=== PATIENT | female | born 1935 | race Caucasian/White ===

== ENCOUNTER 2021-01-04 09:58 | Day surgery (SDC) | payer MEDICARE, BC ==
[2020-12-29 10:53] LABS: BASOPHILS % (AUTO) 0.6 % (0-1); EOSINOPHILS # (AUTO) 0.1 X10'3 (0-0.9); EOSINOPHILS % (AUTO) 2.9 % (0-6); HEMATOCRIT 43.6 % (35.0-45.0); HEMOGLOBIN 14.5 g/dl (12.0-16.0); LYMPHOCYTES # (AUTO) 1.4 X10'3 (1.1-4.8); LYMPHOCYTES % (AUTO) 31.2 % (21-51); MEAN CORPUSCULAR HGB CONC 33.2 g/dL (33.0-36.5); MEAN CORPUSCULAR VOLUME 90.2 FL (78-98); MEAN PLATELET VOLUME 8.3 FL (7.4-10.4); MONOCYTES # (AUTO) 0.5 X10'3 (0-0.9); MONOCYTES % (AUTO) 12.2 % (2-12); NEUTROPHILS # (AUTO) 2.4 X10'3 (1.8-7.7); NEUTROPHILS % (AUTO) 53.1 % (42-75); PLATELET COUNT 283 X10'3 (140-440); RED BLOOD COUNT 4.84 X10'6 (4.20-5.60); RED CELL DISTRIBUTION WIDTH 14.4 % (11.5-14.5); WHITE BLOOD COUNT 4.5 X10'3 (4.5-11.0)
[2020-12-29 11:04] LABS: PARTIAL THROMBOPLASTIN TIME 26 SECONDS (22-32)
[2020-12-29 11:05] LABS: ALANINE AMINOTRANSFERASE 31 U/L (12-78); ALBUMIN 3.7 G/DL (3.4-5.0); ALBUMIN/GLOBULIN RATIO 1.2 (1.1-1.5); ALKALINE PHOSPHATASE 53 IU/L (46-116); ANION GAP 7 (8-16); ASPARTATE AMINO TRANSFERASE 20 U/L (10-37); BILIRUBIN,TOTAL 0.5 MG/DL (0.1-1.0); BLOOD UREA NITROGEN 20 MG/DL (7-18); CALCIUM 8.6 MG/DL (8.5-10.1); CHLORIDE 107 MMOL/L (99-107); CREATININE 0.74 MG/DL (0.40-0.90); GLUCOSE 99 MG/DL (70-104); POTASSIUM 4.3 MMOL/L (3.5-5.1); SODIUM 142 MMOL/L (135-145); TOTAL CARBON DIOXIDE 27.9 MMOL/L (24-32); TOTAL PROTEIN 6.8 G/DL (6.4-8.2); eGFR 74 ML/MIN
[~2021-01-04] VITALS: Ht 152.4 cm; Wt 75.0 kg
[2021-01-04] VITALS (12 sets, daily range): BP systolic 91–136; BP diastolic 42–80
[~2021-01-04 09:58] MED LIST: ALEN70TA60 PO; ASPI-1265 PO; ASTNS; ATOR10TA87 PO; CALC-472 PO; CARB1DRO12 OP; CHOL2000 PO; DOCU50CA6 PO; DOXY-243 PO; HYDR-4353 PO; LISI20TA28 PO; MULT-785 PO; PROP15DR2 EACHEYE; SYN0.088T PO; [UNRECOGNIZED DRUG - CODE] OP
[2021-01-04] MEDS ORDERED: LEVO50TA8 PO (10:49)
[2021-01-04] MEDS ORDERED: METO25TA6 PO (10:49)
[2021-01-04] MEDS ORDERED: ALPR0.255 PO (10:49)
[2021-01-04] MEDS ORDERED: PEPTO-BISMOL (10:52)
[2021-01-04] MEDS ORDERED: OMEGA 3 (10:52)
[2021-01-04] MEDS ORDERED: ALLER-TEC (10:52)
[2021-01-04] MEDS ORDERED: LORazepam 0.5 MG tablet PO PRN (12:00)
[2021-01-04] MEDS ORDERED: diphenhydrAMINE 25mg capsule PO PRN (12:00)
[2021-01-04] MEDS ORDERED: normal saline 1,000 ML IV SCH (12:00)
[2021-01-04] MEDS ORDERED: nitroGLYCERIN 0.4mg SUBLingual tab SL PRN (12:00)
[2021-01-04] MEDS ORDERED: midazolam 1 mg/ML 2ml injection ONE (12:37)
[2021-01-04] MEDS ORDERED: iohexol 350 MG/ML 50ML vial IV ONE (12:37)
[2021-01-04] MEDS ORDERED: LIDOcaine 1% (10mg/ml)w/preservative injection 20ml MDV ONE (12:37)
[2021-01-04] MEDS ORDERED: fentaNYL/PF 50MCG/1 ML 2ML syringe ONE (12:37)
[2021-01-04] MEDS ORDERED: iohexol 350MG/ML 100ml bottle IV ONE (12:37)
[2021-01-04] MEDS ORDERED: HYDROcodone/acetaminophen 5mg/325mg tablet PO PRN (13:50)
[2021-01-04] MEDS ORDERED: OXAZEpam 15mg capsule PO PRN (13:50)
[2021-01-04] MEDS ORDERED: HYDROcodone/acetaminophen 10/325mg tab PO PRN (13:50)
[2021-01-04] MEDS ORDERED: proCHLORperazine 10 MG/2 ml inj IV PRN (13:50)
[2021-01-04] MEDS ORDERED: ondansetron/PF 4mg/2ml inj IV PRN (13:50)
== END 2021-01-04 20:05 | disposition home or self-care (01) ==
LOC: SSTAY O 09:58
PROVIDERS: ATTEND Internal Medicine Cardiovascular Disease
DX: R94.39 Abnormal result of other cardiovascular function study (principal); I25.10 Atherosclerotic heart disease of native coronary artery without angina pectoris; I35.0 Nonrheumatic aortic (valve) stenosis; E78.5 Hyperlipidemia, unspecified; I45.10 Unspecified right bundle-branch block; I10 Essential (primary) hypertension; I45.2 Bifascicular block; E03.9 Hypothyroidism, unspecified; M19.90 Unspecified osteoarthritis, unspecified site; J44.9 Chronic obstructive pulmonary disease, unspecified; Z96.652 Presence of left artificial knee joint; Z98.890 Other specified postprocedural states; Z88.0 Allergy status to penicillin; Z79.01 Long term (current) use of anticoagulants; Z79.899 Other long term (current) drug therapy; Z87.891 Personal history of nicotine dependence
CPT/HCPCS: 36415; 71046; 80053; 85025; 85610; 85730; 93005; 93458; 93567; 99152; C1760; C1769; J1644; J2001; J2250; J3010; J7030; Q0163; Q9967; 99153; A4620; A6258

== ENCOUNTER 2021-02-24 08:54 | Day surgery (SDC) | payer MEDICARE, BC ==
[2021-02-22 16:21] LABS: BASOPHILS % (AUTO) 0.5 % (0-1); EOSINOPHILS # (AUTO) 0.1 X10'3 (0-0.9); EOSINOPHILS % (AUTO) 2.1 % (0-6); LYMPHOCYTES # (AUTO) 1.7 X10'3 (1.1-4.8); MEAN CORPUSCULAR HEMOGLOBIN 30.3 PG (27.0-31.0); MEAN CORPUSCULAR HGB CONC 33.6 g/dL (33.0-36.5); MONOCYTES # (AUTO) 0.8 X10'3 (0-0.9); MONOCYTES % (AUTO) 12.5 % (2-12); NEUTROPHILS # (AUTO) 3.5 X10'3 (1.8-7.7); NEUTROPHILS % (AUTO) 57.9 % (42-75); PRE OP HEMATOCRIT 44.3 % (35.0-45.0); PRE OP HEMOGLOBIN 14.9 g/dL (12.0-16.0); PRE OP PLATELET COUNT 337 X10'3 (140-440); RED BLOOD COUNT 4.92 X10'6 (4.20-5.60); RED CELL DISTRIBUTION WIDTH 13.7 % (11.5-14.5)
[2021-02-22 16:29] LABS: ALBUMIN 3.9 G/DL (3.4-5.0); ALBUMIN/GLOBULIN RATIO 1.1 (1.1-1.5); ALKALINE PHOSPHATASE 64 IU/L (46-116); BLOOD UREA NITROGEN 22 MG/DL (7-18); BUN/CREATININE RATIO 29.7 (6.6-38.0); CALCIUM 9.3 MG/DL (8.5-10.1); CHLORIDE 105 MMOL/L (99-107); CREATININE 0.74 MG/DL (0.40-0.90); PRE OP ALT 33 U/L (30-65); PRE OP ANION GAP 10 (8-16); PRE OP AST 23 U/L (10-37); PRE OP BILIRUB, TOTAL 0.6 MG/DL (0.0-1.0); PRE OP GLUCOSE 86 MG/DL (70-104); PRE OP POTASSIUM 4.2 MMOL/L (3.4-5.1); PRE OP SODIUM 142 MMOL/L (135-145); TOTAL CARBON DIOXIDE 26.8 MMOL/L (24-32); TOTAL PROTEIN 7.3 G/DL (6.4-8.2); eGFR 74 ML/MIN
[~2021-02-24] VITALS: Ht 152.4 cm; Wt 71.6 kg
[2021-02-24] VITALS (18 sets, daily range): BP systolic 85–146; BP diastolic 41–80
[~2021-02-24 08:54] MED LIST changes: +ALPR0.255 PO; -ASTNS; -CALC-472 PO; +CALC1TAB PO; +CARB15DR58 EACHEYE; -CARB1DRO12 OP; +CETI-194 PO; -DOCU50CA6 PO; +DOCUMENT DATE & TIME OF BETA-BLOCKER PO ONE; -DOXY-243 PO; -HYDR-4353 PO; +LEVO50TA8 PO; +LISI10TA27 PO; -LISI20TA28 PO; +METO25TA6 PO; +OM-31CAP2 PO; -PROP15DR2 EACHEYE; -SYN0.088T PO; -[UNRECOGNIZED DRUG - CODE] OP; +acetaminophen 325mg tablet PO ONE; +cefazolin/dext.iso 2gm/100ml IV ONE; +celeCOXIB 100mg capsule PO ONE; +famotidine 20mg tablet PO ONE; +gabapentin 300mg capsule PO ONE; +metoclopramide 5 mg/ml inj IV ONE; +ringers solution, lacted 1,000 ML IV SCH; +tranexamic acid 1gm/0.7% sal. 100 ML IV ONE; +vancomycin 1,500 MG in NS 300ml IV soln IV ONE
[2021-02-24] MEDS ORDERED: ROPIVAcaine inj 250 MG, ketorolac tromethamine inj. 30 MG, CloNIDine/PF inj 80 MCG, epi... IU ONE ×5 (10:30)
[2021-02-24] MEDS ORDERED: vancomycin 1,000mg inj ONE (11:00)
[2021-02-24] MEDS ORDERED: ondansetron/PF 4mg/2ml inj ONE (11:06)
[2021-02-24] MEDS ORDERED: dexamethasone sod phosphate 10mg/ml inj ONE (11:06)
[2021-02-24] MEDS ORDERED: sevoflurane 250ml liquid IH ONE (11:06)
[2021-02-24] MEDS ORDERED: rocuronium 10mg/ml inj IV ONE (11:06)
[2021-02-24] MEDS ORDERED: neostigmine methylsulfate 1 MG/ML 10ml vial ONE (11:06)
[2021-02-24] MEDS ORDERED: propofol 10mg/ml 20ml vial IV ONE (11:06)
[2021-02-24] MEDS ORDERED: LIDOcaine 1%/PF 5ML 10 MG/ML VIAL ONE (11:06)
[2021-02-24] MEDS ORDERED: glycopyrrolate 0.2mg/ml inj ONE (11:06)
[2021-02-24] MEDS ORDERED: fentaNYL/PF 50MCG/1 ML 2ML syringe ONE ×2 (11:14→11:41)
[2021-02-24] MEDS ORDERED: ROPIVAcaine 0.2% (10 MG/5 ML) BOLUS INJECTION ADDCANAL PRN (11:50)
[2021-02-24] MEDS ORDERED: morphine 2 MG/ML inj. syringe IV PRN (11:50)
[2021-02-24] MEDS ORDERED: HYDROmorphone/PF 0.2 MG/ML SYRINGE IV PRN ×2 (11:50)
[2021-02-24] MEDS ORDERED: ringers solution, lacted 1,000 ML IV SCH (11:50)
[2021-02-24] MEDS ORDERED: ondansetron/PF 4mg/2ml inj IV PRN ×2 (11:50→12:55)
--- NOTE | 2021-02-24 12:51 | NUR ---
Patient arrived via hospital bed. 20g left wrist. Right Total Knee with CDI dressing, shirin, sleeve and sand. Patient asleep on 10L o2 mask. SB. Will continue to monitor.
[2021-02-24] MEDS ORDERED: bisacodyl 10mg suppository rectal RC PRN (12:55)
[2021-02-24] MEDS ORDERED: acetaminophen 325mg tablet PO PRN (12:55)
[2021-02-24] MEDS ORDERED: HYDROcodone/acetaminophen 10/325mg tab PO PRN (12:55)
[2021-02-24] MEDS ORDERED: non-formulary drug (Alendronate Sodium* (Fosamax*) 1 TAB) PO SCH (12:55)
[2021-02-24] MEDS ORDERED: HYDROmorphone 1 mg/ml syringe IV PRN (12:55)
[2021-02-24] MEDS ORDERED: diphenhydrAMINE 25mg capsule PO PRN ×2 (12:55)
[2021-02-24] MEDS ORDERED: ALPRAZolam 0.25mg tablet PO PRN (12:55)
[2021-02-24] MEDS ORDERED: cetirizine 10mg tablet PO PRN (12:55)
[2021-02-24] MEDS ORDERED: PEG 400/HYPROMELLOSE/GLYCERIN 15ml bottle EACHEYE PRN (12:55)
[2021-02-24] MEDS ORDERED: HYDROmorphone inj. 0.5 MG/0.5 ML DISP.SYRIN IV PRN (12:55)
[2021-02-24] MEDS ORDERED: magnesium hydroxide 30ml (MOM) UD suspension PO PRN (12:55)
[2021-02-24] MEDS: ROPIVAcaine 0.2%/PF PUMP/bolus 545 ML ADDCANAL SCH (13:14)
--- NOTE | 2021-02-24 13:54 | NUR ---
Patient in room PAS IN 900. I have received report from Ami WHEELER in recovery and had the opportunity to ask questions and assume patient care.
--- NOTE | 2021-02-24 14:01 | NUR ---
Report called to Faustina. Patient continues to be Sinus Jason with normal BP. patient is denying pain now that OnQ attached, patient needs continuing education regarding pushing button. VSS. LR running at 100ml/hr. Belongings sent with patient. Patient is slow to be educated but re-orients easily. RESIGHINI. No further report needed.
[2021-02-24] MEDS: potassium cl 20mEq in 1/2 NS 1,000 ML IV SCH ×2 (15:45→20:55)
[2021-02-24] MEDS: gabapentin 300mg capsule PO SCH ×2 (15:48→19:32)
[2021-02-24] MEDS: ceFAZolin/D5W- 1GM premix 50 ML IV SCH (16:03)
[2021-02-24] MEDS ORDERED: tranexamic acid 1gm/0.7% sal. 100 ML IV ONE (17:55)
--- NOTE | 2021-02-24 18:07 | NUR ---
Problems reprioritized. Patient report given, questions answered & plan of care reviewed with Kristi WHEELER.
[2021-02-24] MEDS: ascorbic acid 500mg tablet PO SCH (19:32)
[2021-02-24] MEDS: metoprolol tartrate 12.5mg (1/2 tablet) PO SCH (19:34)
[2021-02-24] MEDS ORDERED: vancomycin/NS 1 GM ADD-VANTAGE 250 ML IV SCH (20:00)
[2021-02-24] MEDS ORDERED: atorvastatin 10mg tablet PO SCH (21:00)
[2021-02-24] MEDS ORDERED: sennosides 8.6mg tablet PO SCH (21:00)
[2021-02-25] VITALS: BP 110/56
[2021-02-25] MEDS: ceFAZolin/D5W- 1GM premix 50 ML IV SCH (00:11)
--- NOTE | 2021-02-25 00:16 | NUR ---
dayshift did not chart post op VS. They were written down, so night PCT entered them.
--- NOTE | 2021-02-25 02:24 | NUR ---
reviewed and edited SRN assessment.
[2021-02-25] MEDS: potassium cl 20mEq in 1/2 NS 1,000 ML IV SCH (02:25)
[2021-02-25] MEDS: HYDROcodone/acetaminophen 10/325mg tab PO PRN ×2 (04:45→09:07)
[2021-02-25] MEDS: ROPIVAcaine 0.2%/PF PUMP/bolus 545 ML ADDCANAL SCH (05:34)
[2021-02-25 06:11] LABS: BASOPHILS % (AUTO) 0 % (0-1); EOSINOPHILS % (AUTO) 0.4 % (0-6); HEMATOCRIT 32.9 % (35.0-45.0); HEMOGLOBIN 11.3 g/dl (12.0-16.0); LYMPHOCYTES # (AUTO) 1.2 X10'3 (1.1-4.8); LYMPHOCYTES % (AUTO) 12.3 % (21-51); MEAN CORPUSCULAR HEMOGLOBIN 30.7 PG (27.0-31.0); MEAN CORPUSCULAR HGB CONC 34.3 g/dL (33.0-36.5); MEAN CORPUSCULAR VOLUME 89.5 FL (78-98); MONOCYTES # (AUTO) 1.4 X10'3 (0-0.9); MONOCYTES % (AUTO) 14.1 % (2-12); NEUTROPHILS # (AUTO) 7.2 X10'3 (1.8-7.7); NEUTROPHILS % (AUTO) 73.2 % (42-75); PLATELET COUNT 283 X10'3 (140-440); RED BLOOD COUNT 3.68 X10'6 (4.20-5.60); RED CELL DISTRIBUTION WIDTH 13.9 % (11.5-14.5); WHITE BLOOD COUNT 9.9 X10'3 (4.5-11.0)
--- NOTE | 2021-02-25 06:19 | NUR ---
Problems reprioritized. Patient report given, questions answered & plan of care reviewed with LIAM Dwyer.
[2021-02-25 06:29] LABS: ANION GAP 9 (8-16); CHLORIDE 109 MMOL/L (99-107); POTASSIUM 4.6 MMOL/L (3.5-5.1); SODIUM 142 MMOL/L (135-145); TOTAL CARBON DIOXIDE 23.6 MMOL/L (24-32)
--- NOTE | 2021-02-25 06:35 | NUR ---
Patient in room JOHN 345. I have received report from Kristi cornelius and had the opportunity to ask questions and assume patient care.
[2021-02-25 08:00] VITALS: BP 126/54
[2021-02-25] MEDS ORDERED: levoTHYROXINE 25mcg tablet PO SCH (08:00)
[2021-02-25] MEDS ORDERED: aspirin 81mg tab.chew PO SCH (08:00)
[2021-02-25] MEDS ORDERED: multivitamins, therapeutics tablet PO SCH (08:00)
[2021-02-25] MEDS ORDERED: lisinopril 10 MG tablet PO SCH (08:00)
[2021-02-25] MEDS: gabapentin 300mg capsule PO SCH (08:44)
[2021-02-25] MEDS: metoprolol tartrate 12.5mg (1/2 tablet) PO SCH (08:45)
[2021-02-25 08:46] VITALS: BP_SYST 126
[2021-02-25] MEDS: ascorbic acid 500mg tablet PO SCH (08:48)
--- NOTE | 2021-02-25 11:25 | NUR ---
pt discharged at 1045 in stable condition. Iv removed tip intact, no complications. Pt educated on post op instructions. Belongings sent with patient. Patient discharged with son in private vehicle.
[2021-02-25] MEDS ORDERED: celeCOXIB 100mg capsule PO SCH (20:00)
== END 2021-02-25 11:20 | disposition home or self-care (01) ==
LOC: PAS IN 08:54 → UNDOADMIN 08:54 → PRE-OP 08:54 → EDSTATUS 11:30 → UNDOADMIN 12:56 → PAS IN 12:56 → SUR 3N 14:21 → PAS IN 14:21 → SUR 3N 14:22 → PRE-OP 02-25 11:20 → UNDODISIN 02-25 11:20
PROVIDERS: ATTEND Orthopaedic Surgery
DX: M17.11 Unilateral primary osteoarthritis, right knee (principal); M19.072 Primary osteoarthritis, left ankle and foot; M19.071 Primary osteoarthritis, right ankle and foot; M16.11 Unilateral primary osteoarthritis, right hip; G89.18 Other acute postprocedural pain; I10 Essential (primary) hypertension; M85.80 Other specified disorders of bone density and structure, unspecified site; E66.9 Obesity, unspecified; Z68.30 Body mass index [BMI] 30.0-30.9, adult; Z85.828 Personal history of other malignant neoplasm of skin; Z20.822 Contact with and (suspected) exposure to COVID-19; Z79.899 Other long term (current) drug therapy; Z88.0 Allergy status to penicillin; Z98.890 Other specified postprocedural states; Z72.89 Other problems related to lifestyle; Z79.82 Long term (current) use of aspirin; Z98.49 Cataract extraction status, unspecified eye
CPT/HCPCS: 27447; 36415; 64448; 73560; 76937; 80051; 80053; 82948; 85025; 86885; 86900; 86901; 87081; 87635; 97110; 97116; 97161; 97530; C1713; C1776; J0690; J1100; J2270; J2405; J2704; J2710; J2765; J2795; J3010; J3370; J7040; J7120; Z7506; Z7508; Z7512; A4215; A6449; A7000; G0378; J3480; J3490